=== PATIENT | male | born 1995 | race Caucasian/White ===

== ENCOUNTER 2022-10-07 11:05 | Emergency (ER) | payer OTHER ==
[~2022-10-07] VITALS: Ht 175.3 cm; Wt 99.8 kg
[2022-10-07 11:42] VITALS: RESP 18; TEMP 98.3
[2022-10-08 11:07] LABS: HEPATITIS B CORE AB, TOTAL Negative (Negative); HEPATITIS B SURFACE AG Negative (Negative); HEPATITIS C VIRUS AB Non Reactive (Non Reactive)
== END 2022-10-07 11:41 | disposition home or self-care (01) ==
LOC: SED 11:05
DX: S61.432A Puncture wound without foreign body of left hand, initial encounter (principal); Z79.899 Other long term (current) drug therapy; W46.0XXA Contact with hypodermic needle, initial encounter; Y93.89 Activity, other specified; Y92.89 Other specified places as the place of occurrence of the external cause; Y99.8 Other external cause status
CPT/HCPCS: 36415; 86704; 86706; 86803; 87340; 99283

== ENCOUNTER 2023-06-16 15:53 | Emergency (ER) | payer OTHER ==
[~2023-06-16] VITALS: Ht 175.3 cm; Wt 117.9 kg
[2023-06-16 16:00] VITALS: BP_SYST 160; PULSE 89; RESP 18; TEMP 99.1; O2SAT 99
[2023-06-16] MEDS: NACL 0.9% 1,000 ML IV ONE ×2 (16:07→17:09)
[2023-06-16 16:24] LABS: BASOPHILS # (AUTO) 0.1 K/uL (0.0-0.2); BASOPHILS % (AUTO) 0.3 % (0.0-2.0); EOSINOPHILS # (AUTO) 0.1 K/uL (0.0-0.4); EOSINOPHILS % (AUTO) 0.4 % (0.0-4.0); HEMATOCRIT 41.2 % (36-54); HEMOGLOBIN 13.9 g/dL (14.0-18.0); LYMPHOCYTES # (AUTO) 1.6 K/uL (1.0-5.5); LYMPHOCYTES % (AUTO) 9.8 % (20.5-51.5); MEAN CORPUSCULAR HEMOGLOBIN 30 pg (27-31); MEAN CORPUSCULAR HGB CONC 34 % (32-36); MEAN CORPUSCULAR VOLUME 90 fL (79.0-98.0); MONOCYTES # (AUTO) 0.9 K/uL (0.0-1.0); MONOCYTES % (AUTO) 5.6 % (1.7-9.3); NEUTROPHILS # (AUTO) 13.6 K/uL (1.8-7.7); NEUTROPHILS % (AUTO) 83.9 % (40.0-70.0); PLATELET COUNT (AUTO) 266 K/uL (130-430); RED BLOOD CELL COUNT(AUTO) 4.59 MIL/uL (4.2-6.2); RED CELL DISTRIBUTION WIDTH 13.5 % (9.0-15.0); WHITE BLOOD COUNT (AUTO) 16.3 K/uL (4.8-10.8)
[2023-06-16] MEDS: ONDANSETRON HCL 4 MG/2 ML VIAL IVP ONE ×2 (16:24→18:20)
[2023-06-16 16:27] LABS: CALCIUM 9.1 mg/dL (8.4-11.0); CREATININE 0.91 mg/dL (0.55-1.30); POTASSIUM 3.9 mmol/L (3.5-5.1)
[2023-06-16 16:32] LABS: BILIRUBIN,DIRECT 0.1 mg/dL (0.0-0.3); TOTAL BILIRUBIN 0.4 mg/dL (0.0-1.0); TOTAL PROTEIN, SERUM 8.7 g/dL (6.4-8.3)
[2023-06-16] MEDS ORDERED: ONDA-8 TL (17:40)
[2023-06-16 17:58] LABS: BILIRUBIN,URINE NEGATIVE (NEGATIVE); BLOOD, URINE NEGATIVE (NEGATIVE); CLARITY/URINE CLEAR (CLEAR); COLOR,URINE YELLOW (YELLOW); GLUCOSE,URINE NEGATIVE (NEGATIVE); KETONES,URINE NEGATIVE (NEGATIVE); LEUKOCYTE ESTERASE ,URINE NEGATIVE (NEGATIVE); NITRITE, URINE NEGATIVE (NEGATIVE); PH,URINE 5.5 (5.0-8.0); PROTEIN URINE NEGATIVE (NEGATIVE); UROBILINOGEN,URINE 0.2 (0.2-1.0)
[2023-06-16] MEDS: MORPHINE 4 MG INJ. 4 MG/ML VIAL IVP ONE (18:26)
[2023-06-16 21:07] VITALS: BP_SYST 142; PULSE 90; RESP 18; TEMP 97.9; O2SAT 98
== END 2023-06-16 21:07 | disposition home or self-care (01) ==
LOC: SED 15:53
DX: K52.9 Noninfective gastroenteritis and colitis, unspecified (principal); D72.829 Elevated white blood cell count, unspecified
CPT/HCPCS: 99285; 74177; 96374; 96361; 96375; 80076; 80048; 81001; 83690; 85025; 36415; 96376; 81003; J2405; J2270; Q9967; J7030

== ENCOUNTER 2023-09-30 01:09 | Emergency (ER) | payer OTHER ==
[~2023-09-30] VITALS: Ht 177.8 cm; Wt 117.9 kg
[~2023-09-30 01:09] MED LIST: ONDA-8 TL
[2023-09-30 01:23] VITALS: BP_SYST 162; PULSE 97; RESP 22; TEMP 98.7; O2SAT 97
[2023-09-30 02:58] VITALS: BP_SYST 162; PULSE 97; RESP 22; TEMP 98.7; O2SAT 97
== END 2023-09-30 02:58 | disposition home or self-care (01) ==
LOC: SED 01:09
DX: S91.114A Laceration without foreign body of right lesser toe(s) without damage to nail, initial encounter (principal); Z79.899 Other long term (current) drug therapy; W22.8XXA Striking against or struck by other objects, initial encounter; Y93.89 Activity, other specified; Y92.89 Other specified places as the place of occurrence of the external cause; Y99.8 Other external cause status
CPT/HCPCS: 99283

== ENCOUNTER 2023-10-07 18:49 | Emergency (ER) | payer OTHER ==
[~2023-10-07] VITALS: Ht 177.8 cm; Wt 120.2 kg
[2023-10-07 18:59] VITALS: BP_SYST 139; PULSE 110; RESP 19; TEMP 96.9; O2SAT 99
== END 2023-10-07 20:10 | disposition home or self-care (01) ==
LOC: SED 18:49
DX: S91.115D Laceration without foreign body of left lesser toe(s) without damage to nail, subsequent encounter (principal); Z48.02 Encounter for removal of sutures; Z79.899 Other long term (current) drug therapy; X58.XXXD Exposure to other specified factors, subsequent encounter
CPT/HCPCS: 99281